=== PATIENT | female | born 1990 | race African-American/Black ===

== ENCOUNTER 2017-10-05 13:28 | Emergency (ER) | payer MEDICAID ==
[~2017-10-05] VITALS: Ht 167.6 cm; Wt 63.5 kg
[2017-10-05 13:28] VITALS: BP 137/75
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
[2017-10-05 13:45] VITALS: BP 137/75
== END 2017-10-05 14:30 | disposition left against medical advice (07) ==
LOC: EDBD 13:28 → EMR 14:20
DX: M25.511 Pain in right shoulder (principal); Z53.21 Procedure and treatment not carried out due to patient leaving prior to being seen by health care provider
CPT/HCPCS: 99283